=== PATIENT | female | born 1960 | race Caucasian/White ===

== ENCOUNTER 2020-04-13 15:56 | Outpatient (CLI) | payer OTHER, BC, SELFPAY | END 2020-04-13 15:57 | disposition home or self-care (01) | LOC: CHSLAB 16:03 | PROVIDERS: Visit Provider Specialist | DX: C44.41 Basal cell carcinoma of skin of scalp and neck (principal) | CPT/HCPCS: 88305 ==

== ENCOUNTER 2021-05-26 11:34 | Outpatient (CLI) | payer OTHER, SELFPAY ==
[2021-05-26 11:52] LABS: Basophils Absolute Auto 0.02 K/mm3 (0.00-0.10); Basophils Percent Auto 0.3 % (0.0-1.0); Eosinophils Absolute Auto 0.05 K/mm3 (0.02-0.50); Eosinophils Percent Auto 0.8 % (1.0-6.0); Hematocrit 41.3 % (35.0-49.0); Immature Granulocyte Absolute 0.02 K/mm3 (0.00-0.00); Immature Granulocyte Percent A 0.3 % (0.0-0.0); Lymphocytes Absolute Auto 1.67 K/mm3 (1.10-4.50); Lymphocytes Percent Auto 27.9 % (18.0-42.0); Mean Corpuscular HGB Conc 33.9 g/dL (32.0-36.0); Mean Corpuscular Hemoglobin 32.3 pg (27.0-31.0); Mean Corpuscular Volume 95.2 fL (78.0-102.0); Mean Platelet Volume 9.8 fl (9.2-11.8); Monocytes Absolute Auto 0.29 K/mm3 (0.10-0.90); Monocytes Percent Auto 4.8 % (2.0-11.0); Neutrophils Absolute Auto 3.9 K/mm3 (1.7-7.2); Neutrophils Percent Auto 65.9 % (50.0-70.0); Platelet Count Result 260 K/mm3 (150-420); Red Blood Count 4.34 M/mm3 (4.20-5.40)
[2021-05-26 12:16] LABS: Alanine Aminotransferase 24 U/L (14-59); Albumin Level 4.1 g/dL (3.4-5.0); Alkaline Phosphatase 49 U/L (46-116); Amylase 58 U/L (25-115); Anion Gap 11 mmol/L (8-16); Aspartate Amino Transferase 16 U/L (15-37); Bilirubin,Total 0.8 mg/dL (0.00-1.00); Blood Urea Nitrogen 13 mg/dL (7-18); Calcium 9.5 mg/dL (8.5-10.1); Carbon Dioxide 27 mmol/L (21-32); Chloride 104 mmol/L (98-108); Estimated Glomerular Filt Rate > 60; Glucose 94 mg/dL (70-99); Lipase 120 U/L (73-393); Osmolality Calculated 294 mOsm/kg (285-295); Potassium 4.4 mmol/L (3.5-5.1); Sodium 142 mmol/L (136-145); Total Protein 7.7 g/dL (6.4-8.2)
== END 2021-05-26 11:35 | disposition home or self-care (01) ==
LOC: CHSLAB 11:37
PROVIDERS: PCP Family Medicine; Visit Provider Family Medicine
DX: R10.9 Unspecified abdominal pain (principal); K58.0 Irritable bowel syndrome with diarrhea
CPT/HCPCS: 36415; 80053; 82150; 83690; 85025

== ENCOUNTER 2021-05-30 08:25 | Outpatient (CLI) | payer OTHER, SELFPAY ==
--- NOTE | ~2021-05-30 | US_ITS ---
EXAMINATION: US right upper quadrant DATE: 05/30/2021 08:46 INDICATION: Abdominal pain and diarrhea TECHNIQUE: Multiple grayscale and Doppler ultrasound images of the abdomen were obtained. COMPARISON: None available FINDINGS: The head and body of the pancreas are normal. The pancreatic tail is obscured by bowel gas. The liver is normal with normal echogenicity and echotexture. No surface nodularity. Normal hepatope wendi flow in the main portal vein. There is a 4 mm polyp or a immobile stone of the gallbladder. The g allbladder is otherwise normal with no abnormal wall thickening, pericholecystic fluid or stones. The normal common bile duct measures 4 mm. There was no sonographic Wright sign. IMPRESSION: 1. 4 mm polyp or immobile stone of the gallbladder. Reviewed, dictated and finalized at location B.
== END 2021-05-30 08:26 | disposition home or self-care (01) ==
LOC: CHSIMG 08:26
PROVIDERS: PCP Family Medicine; Visit Provider Family Medicine
DX: R10.9 Unspecified abdominal pain (principal)
CPT/HCPCS: 76705

== ENCOUNTER 2021-06-23 02:43 | Day surgery (SDC) | payer OTHER, BC, SELFPAY ==
[2021-06-14 16:04] VITALS: BMI 29.2
[2021-06-23 07:52] VITALS: BP 129/82; PULSE 87; RESP 16; TEMP 35.9; O2SAT 100; BMI 29.2
[2021-06-23] MEDS: LACTATED RINGERS 1,000 ML 150 ML IV CONT (08:01)
--- NOTE | 2021-06-23 08:21 | P.PNAN_ITS ---
Anes - Initial Pre Proc Eval Procedure: Operation Date: 06/23/21 09:00 Proposed Procedures p Colonoscopy - Arnulfo Coles DO Date/Time: 06/23/21 08:21 Surgeon: Arnulfo Coles DO Pre Op Diagnosis: diarrhea Patient Data Age: 60 Gender: F Height: 1.52 m Weight: 67.8 kg Last Vital Signs Temp 35.9 C L 06/23/21 07:52 Pulse 87 06/23/21 07:52 Resp 16 06/23/21 07:52 BP 129/82 06/23/21 07:52 Pulse Ox 100 06/23/21 07:52 Allergies Allergy/AdvReac Type Severity Reaction Status Date / Time No Known Allergies Allergy Verified 06/23/21 07:48 Home Medications Medication Instructions Recorded Confirmed Type Lactobacillus #2-Bifidobacter 1 cap PO DAILY #30 cap 05/26/21 06/23/21 Rx #1-S. therm 112.5 billion cell capsule tolterodine 4 mg capsule,extended 4 mg PO DAILY 05/26/21 06/23/21 History release 24 hr multivitamin 1 tablet PO DAILY 06/14/21 06/23/21 History peppermint oil 50 mg PO DAILY 06/14/21 06/23/21 History Patient hx anesthesia problems: none Family hx anesthesia problems: none PMFSH Past Medical History Medical History Abdominal pain Benign hypertension Hematuria Hyperlipidemia RICO (stress urinary incontinence, female) Surgical History Surgical History History of dilation and curettage 2009 History of hysterectomy 2009 History of oophorectomy 1991 History of tubal ligation 1991 Family History Family History Mother Hypertension Father Cancer Bladder tumor/CA Social History Social History Years smoked: 20 Smoking status: Former smoker Tobacco type: cigarettes Smoking end date: 11/12/11 Alcohol intake: current Drinks per week: 4 Alcohol use details: social Substance use: never Substance use type: does not use Living arrangements: with family Additional living arrangements comments: , has 2 children 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 Questions were solicited and answers provided to the satisfaction of the patient/family/POA.
--- NOTE | 2021-06-23 09:15 | WPDHPUPDATE1 ---
History and Physical Update Update Date/Time: 06/23/21 09:15 History and Physical has been reviewed, including an updated exam of the patient. There are NO changes in the patient's condition. Risks, benefits, and alternatives have been discussed and questions answered. Patient agrees to proceed with procedure.
[2021-06-23 09:53] VITALS: BP 104/54; PULSE 76; RESP 16; O2SAT 100
[2021-06-23 10:03] VITALS: BP 114/74; PULSE 71; RESP 16; O2SAT 100
[2021-06-23 10:13] VITALS: BP 128/80; PULSE 72; RESP 18; O2SAT 100
== END 2021-06-23 10:25 | disposition home or self-care (01) ==
PROVIDERS: PCP Family Medicine; Visit Provider Surgery
PROC: 0DJD8ZZ Inspection of Lower Intestinal Tract, Via Natural or Artificial Opening Endoscopic (ICD-10-PCS; CPT 45378; principal; 2021-06-23 09:00)
DX: Z12.11 Encounter for screening for malignant neoplasm of colon (principal); K64.8 Other hemorrhoids; R19.7 Diarrhea, unspecified; I10 Essential (primary) hypertension; R10.9 Unspecified abdominal pain; E78.5 Hyperlipidemia, unspecified; Z87.891 Personal history of nicotine dependence; R93.2 Abnormal findings on diagnostic imaging of liver and biliary tract; E66.9 Obesity, unspecified; Z68.29 Body mass index [BMI] 29.0-29.9, adult
CPT/HCPCS: 45380; 88305; J2704; J7120

== ENCOUNTER 2021-07-11 09:41 | Outpatient (CLI) | payer OTHER, BC, SELFPAY ==
--- NOTE | ~2021-07-11 | NM_ITS ---
EXAMINATION: NM hepatobiliary w pharm EXAM DATE: 07/11/2021 12:11 INDICATION: R10.9 - Unspecified abdominal pain TECHNIQUE: 4.5 mCi Tc-99m mebrofenin (Choletec) was administered intravenously. Scintigraphic images of the abdomen were obtained for one hour. At the 1 hour time point, 1.3 mcg sincalide (Kinevac) wa s administered by slow intravenous infusion, and imaging was continued for 30 minutes. Gallbladder ej ection fraction was calculated by the technologist. Correlation is made to right upper quadrant sonog ira 05/30/2021. FINDINGS: There is normal clearance of radiotracer from the blood pool. There is homogeneous tracer u ptake by the liver. Activity progresses to the gallbladder and bowel. The gallbladder ejection fract ion (GBEF) is 85 % (most patients with gallbladder dysfunction have GBEF < 35%, but there is overlap with the normal range of 10-90%). IMPRESSION: Gallbladder ejection fraction 85%, within normal range. Reviewed, dictated and finalized at location B.
== END 2021-07-11 09:42 | disposition home or self-care (01) ==
PROVIDERS: PCP Family Medicine; Visit Provider Surgery
DX: R10.9 Unspecified abdominal pain (principal); K58.0 Irritable bowel syndrome with diarrhea
CPT/HCPCS: 78227; A9537; J2805

== ENCOUNTER 2021-12-12 09:42 | Outpatient (CLI) | payer BC, SELFPAY ==
--- NOTE | ~2021-12-12 | XR_ITS ---
EXAMINATION: XR hip RT min 2V DATE: 12/12/2021 10:03 INDICATION: 6 months of right hip pain TECHNIQUE: Anteroposterior and frog-leg lateral views of the right hip were obtained. COMPARISON: 03/03/2011 FINDINGS: Alignment is normal. No fracture or suspected avascular necrosis. Mild right hip osteoarthritis with interval development of mild nonuniform joint space narrowing at the superolateral right hip. Mild ri ght sacroiliac osteoarthritis. Soft tissues are unremarkable. IMPRESSION: 1. Mild osteoarthritis at the right hip and sacroiliac joints. Reviewed, dictated and finalized at location A. WINTERIZER
== END 2021-12-12 09:43 | disposition home or self-care (01) ==
PROVIDERS: PCP Family Medicine; Visit Provider Nurse Practitioner Family
DX: M25.551 Pain in right hip (principal)
CPT/HCPCS: 73502

== ENCOUNTER 2021-12-22 08:51 | Outpatient (RCR) | payer BC, SELFPAY ==
--- NOTE | 2021-12-22 11:03 | PTOPEVAL ---
Thank you for referring Marianela Sapp to [facility].? The patient is scheduled to be seen for therapy? ____x/week for ___ weeks. Please review, sign, date and return this plan of care PRIETO. I agree with and certify that the following plan of care is medically necessary. Referring Physician Date Admitting Provider: Attending Provider: Seda Lo NP Referring Provider: HUAN Outpatient Evaluation Start: 12/22/21 08:58 Freq: Status: Active Protocol: Document 12/22/21 09:10 [facility] (Rec: 12/22/21 09:54 [facility] [id number]) Therapy Assessment Status Assessment Status Assessment Status Evaluation Outpatient Past Medical History Neurological History Hx Neurological Disorders No Significant History Cardiovascular History Hx Cardiac Disorders No Significant History Respiratory History Hx Sleep Apnea Yes: no longer uses CPAP Gastrointestinal History Hx Gastrointestinal Disorders No Significant History Genitourinary History Hx Urinary Tract Infection Yes Musculoskeletal History Hx Musculoskeletal Disorders No Significant History Hematological History Hx Hematological Disorders No Significant History Endocrine History Hx Endocrine Disorders No Significant History HEENT History Hx HEENT Disorders No Significant History Integumentary History Hx Excision Skin Lesion Yes: scalp Psychosocial History Hx Psychiatric Disorders No Significant History Pain History History of Any Previous or Ongoing No Significant History Instance of Pain Anesthesia History Hx Anesthesia Reactions No Significant History Evaluation Information Problem Diagnosis R hip pain Onset 12/12/21 Additional Evaluation Detail LEFS = 51% functionally declined Subjective Information patient reports she works for Query Text:As Reported By Patient/ [employer]. 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 she reports she is having pain in the R hip. she reports she has difficulty with walking, getting into car, and standing for increased time. she reports her pain will draw down to her R knee, and reports at time her R foot will go numb when she is up on it too long. she reports she has had an xray of the R hip with results of mild OA of the hip and SI joints. Prior Level of Function Comments Additional Prior Level of Function patient reports he pain has
--- NOTE | 2022-01-20 14:52 | PTOPEVAL ---
Thank you for referring Marianela Sapp to [facility].? The patient is scheduled to be seen for therapy? ____x/week for ___ weeks. Please review, sign, date and return this plan of care PRIETO. I agree with and certify that the following plan of care is medically necessary. Referring Physician Date Admitting Provider: Attending Provider: Seda Lo NP Referring Provider: HUAN Outpatient Evaluation Start: 12/22/21 08:58 Freq: Status: Active Protocol: Document 01/20/22 11:00 [facility] (Rec: 01/20/22 14:52 [facility] [id number]) Therapy Assessment Status Assessment Status Assessment Status Re-evaluation Outpatient Past Medical History Neurological History Hx Neurological Disorders No Significant History Cardiovascular History Hx Cardiac Disorders No Significant History Respiratory History Hx Sleep Apnea Yes: no longer uses CPAP Gastrointestinal History Hx Gastrointestinal Disorders No Significant History Genitourinary History Hx Urinary Tract Infection Yes Musculoskeletal History Hx Musculoskeletal Disorders No Significant History Hematological History Hx Hematological Disorders No Significant History Endocrine History Hx Endocrine Disorders No Significant History HEENT History Hx HEENT Disorders No Significant History Integumentary History Hx Excision Skin Lesion Yes: scalp Psychosocial History Hx Psychiatric Disorders No Significant History Pain History History of Any Previous or Ongoing No Significant History Instance of Pain Anesthesia History Hx Anesthesia Reactions No Significant History Evaluation Information Problem Diagnosis R hip pain Onset 12/12/21 Subjective Information patient reports she continues Query Text:As Reported By Patient/ to have weakness and pain in Family the R hip. she reports she does not like the way she walks as she continues to limp . she reports after a full day she is more sore and unable to stand on the R LE alone. she reports she has continued to be active and workout every day but sunday. patient reports she has R LE numbness down to the foot when coming off the bike from sp[in class. Pain Assessment Timing of Pain Assessment Timing of Pain Assessment Assessment Pain Scale Pain Scale Used Numeric (1 - 10) Self Report Pain Assessment Right Hip(s) Reported Pain Level 1 Greatest Pain Intensity 3 Pain Score Pain Score
== END 2022-01-26 23:59 | disposition home or self-care (01) ==
LOC: CHSPT 08:51
PROVIDERS: PCP Nurse Practitioner Family; Visit Provider Nurse Practitioner Family
DX: M25.551 Pain in right hip (principal)
CPT/HCPCS: 97012; 97014; 97110; 97140; 97161; 97530; G0283

== ENCOUNTER 2022-02-04 07:55 | Outpatient (CLI) | payer BC, SELFPAY ==
--- NOTE | ~2022-02-04 | MR_ITS ---
EXAMINATION: MR hip RT wo con DATE: 02/04/2022 09:26 INDICATION: Mid hip pain TECHNIQUE: Magnetic resonance imaging (MRI) of the right hip was performed without intravenous contr ast. Sequences included full-field axial PD-weighted FS FSE and T1-weighted FSE, coronal of the pelvi s with PD-weighted FS FSE, small field of view of the right hip with axial PD-weighted FS FSE, sagit wendi PD-weighted FS FSE and coronal PD weighted FS FSE. Additional radial T1-weighted FGR oriented ort hogonal to the acetabular rim were obtained for evaluation of the labrum. COMPARISON: None FINDINGS: Bones/labrum/cartilage: Alignment is normal. No fracture, avascular necrosis or pathologic marrow replacing process. Moderat e to severe right hip osteoarthritis with no full/near full-thickness cartilage loss with underlying edema-like increased marrow signal at the anterosuperior acetabulum and juxtaposed femoral head. Is a well-defined linear labral tear at the base of the posterior right acetabular labrum with more irreg ular degenerative tearing extending anteriorly to the anterosuperior labrum. Severe osteoarthritis at the bilateral L5-S1 facet joints. Fluid: Asymmetric likely reactive small right hip joint effusion. Visualized amount of fluid in the left hip joint space. No bursitis or other abnormal fluid collections. Soft tissues: Asymmetric mild fatty atrophy of the right gluteus medius and minimus muscles when compared to the le ft sided muscles. Tendinopathy at the bilateral gluteus medius minimus and right gluteus medius tendo ns. There is mild proximal retraction of the myotendinous junction of the anterior right gluteus medi us tendon consistent with mild partial-thickness likely articular sided tear of the tendon. The bilat eral iliopsoas and proximal hamstring tendons are normal. The uterus is not identified and has likely been surgically resected. Limited evaluation of visceral organs of the pelvis is otherwise unrema rkable. No pathologically enlarged pelvic/inguinal lymphadenopathy. IMPRESSION: 1. Moderate to severe right hip osteoarthritis which is underestimated on the prior radiographs. 2. Diffuse tear of the right acetabular labrum. 3. Likely reactive small right hip joint effusion. 4. Mild bilateral gluteus minimus tendinopathy and mild tendinopathy right gluteus medius tendon with mild likely air undersurface tear of the distal tendon. Reviewed, dictated and finalized at location A. IMPRESSION: 1. Moderate to severe right hip osteoarthritis which is underestimated on the p rior radiographs. 2. Diffuse tear of the right acetabular labrum. 3. Likely reactive small right hip joint effusion. 4. Mild bilateral gluteus minimus tendinopathy and mild tendinopathy right glut eus medius tendon with mild likely air undersurface tear of the distal tendon.
== END 2022-02-04 07:56 | disposition home or self-care (01) ==
PROVIDERS: PCP Nurse Practitioner Family; Visit Provider Nurse Practitioner Family
DX: M25.551 Pain in right hip (principal)
CPT/HCPCS: 73721

== ENCOUNTER 2022-03-17 12:35 | Outpatient (CLI) | payer BC, SELFPAY ==
--- NOTE | ~2022-03-17 | XR_ITS ---
EXAMINATION: XR lg joint inject/asp w image DATE: 03/17/2022 13:47 INDICATION: Right hip arthritis TECHNIQUE: A time-out was performed to verify the patient's name, date of , and procedure to b e performed. The procedure including the risks, benefits, and alternatives was discussed with the pat ient. Risks discussed included bleeding and infection. The patient understood the risks and agreed to proceed. The skin overlying the right hip joint was prepped and draped in usual sterile fashion. A nesthetic was administered with 1% lidocaine subcutaneously. A 22 G needle was advanced under fluoro scopic guidance into the joint. Injection of 1 mL of Omnipaque 240 confirmed intra-articular positio n of the needle. Subsequently, injectate consisting of 3 mL of a 2:1 mixture of 0.5% Marcaine: 80 mg /mL Depo-Medrol for a total dosage of 80 mg Depo-Medrol was instilled. Washout of contrast was seen c onfirming intra-articular administration. The needle was removed and the entry site was cleaned and d ressed. There were no immediate complications. Fluoroscopy exposure time was 0.1 minutes. The total number of images was 2. FINDINGS: Real-time fluoroscopy demonstrates the needle in the right hip joint. Patient's pain prior to procedure:12/22. Patient's pain following the procedure: 11/21. IMPRESSION: 1. Successful right hip joint injection of local anesthetic and steroid with decrease in the patient' s presenting pain. Reviewed, dictated and finalized at location A. IMPRESSION: 1. Successful right hip joint injection of local anesthetic and steroid with de crease in the patient's presenting pain.
== END 2022-03-17 12:36 | disposition home or self-care (01) ==
PROVIDERS: PCP Nurse Practitioner Family; Visit Provider Orthopaedic Surgery
DX: M16.11 Unilateral primary osteoarthritis, right hip (principal)
CPT/HCPCS: 20610; 77002; Q9966

== ENCOUNTER 2022-08-01 09:35 | Outpatient (CLI) | payer BC, SELFPAY ==
--- NOTE | ~2022-08-01 | XR_ITS ---
XR chest 2V 08/01/2022 10:08 Indication: Encounter for preprocedural examination. Procedure: 2 view chest Comparison: No prior studies for comparison. Findings: There is lingular atelectasis. No focal pneumonia, pulmonary edema, pleural effusion or pne umothorax. Heart size is normal. No acute osseous abnormality. Impression: 1: Lingular atelectasis. Reviewed, dictated and finalized at location A. Impression: 1: Lingular atelectasis.
[2022-08-01 10:14] LABS: Basophils Absolute Auto 0.02 K/mm3 (0.00-0.10); Basophils Percent Auto 0.4 % (0.0-1.0); Eosinophils Absolute Auto 0.13 K/mm3 (0.02-0.50); Eosinophils Percent Auto 2.5 % (1.0-6.0); Hematocrit 41.3 % (35.0-49.0); Hemoglobin 13.7 g/dL (12.0-15.0); Immature Granulocyte Absolute 0.02 K/mm3 (0.00-0.00); Immature Granulocyte Percent A 0.4 % (0.0-0.0); Lymphocytes Absolute Auto 1.77 K/mm3 (1.10-4.50); Lymphocytes Percent Auto 33.9 % (18.0-42.0); Mean Corpuscular HGB Conc 33.2 g/dL (32.0-36.0); Mean Corpuscular Hemoglobin 31.9 pg (27.0-31.0); Mean Corpuscular Volume 96.3 fL (78.0-102.0); Mean Platelet Volume 10.1 fl (9.2-11.8); Monocytes Absolute Auto 0.32 K/mm3 (0.10-0.90); Monocytes Percent Auto 6.1 % (2.0-11.0); Neutrophils Percent Auto 56.7 % (50.0-70.0); Platelet Count Result 257 K/mm3 (150-420); Red Blood Count 4.29 M/mm3 (4.20-5.40); Red Cell Distribution Width 12.2 % (11.6-14.4); White Blood Count 5.2 K/mm3 (4.8-10.8)
--- NOTE | 2022-08-01 10:14 | ECG_ITS ---
Measurements Intervals [place] Rate: 82 P: 18 NM: 121 QRS: 20 QRSD: 95 T: 68 QT: 350 QTc: 410 Interpretive Statements SINUS RHYTHM INCOMPLETE RIGHT BUNDLE BRANCH BLOCK BASELINE ARTIFACT- II, III, AVF BORDERLINE ECG NO PREVIOUS ECG AVAILABLE FOR COMPARISON Electronically Signed On 08-01-2022 12:27:22 CDT by Larry Serra D.O.
[2022-08-01 10:41] LABS: Alanine Aminotransferase 33 U/L (14-59); Albumin Level 3.9 g/dL (3.4-5.0); Alkaline Phosphatase 59 U/L (46-116); Anion Gap 3 mmol/L (8-16); Aspartate Amino Transferase 22 U/L (15-37); Bilirubin,Total 0.9 mg/dL (0.00-1.00); Blood Urea Nitrogen 11 mg/dL (7-18); Calcium 9.1 mg/dL (8.5-10.1); Carbon Dioxide 30 mmol/L (21-32); Chloride 104 mmol/L (98-108); Cholesterol 307 mg/dL (0-200); Estimated Glomerular Filt Rate > 60; Glucose 94 mg/dL (70-99); HDL Direct 61 mg/dL (40-60); LDL Cholesterol Calculated 218 mg/dL (<130); Osmolality Calculated 283 mOsm/kg (285-295); Potassium 4.1 mmol/L (3.5-5.1); Sodium 137 mmol/L (136-145); Total Protein 7.3 g/dL (6.4-8.2); Triglycerides 142 mg/dL (0-150)
[2022-08-01 12:13] LABS: Add Urine Microscopic? NO; Appearance Urine Clear (Clear); Bilirubin Urine Negative (Negative); Blood Urine Negative (Negative); Color Urine Light Yellow (Yellow); Glucose Urine UA Negative (Negative); Ketones Urine Negative (Negative); Leukocyte Esterase Ur Negative LEU/UL (Negative); Nitrate Urine Negative (Negative); Protein Urine Negative (Negative); Specific Grav Ur <= 1.005 (1.010-1.020); Urobilinogen Urine 0.2 mg/dL (0.2-1.0)
== END 2022-08-01 09:36 | disposition home or self-care (01) ==
LOC: CHSLAB 09:37
PROVIDERS: PCP Nurse Practitioner Family; Visit Provider Nurse Practitioner Family
DX: Z01.818 Encounter for other preprocedural examination (principal)
CPT/HCPCS: 36415; 71046; 80053; 80061; 81003; 85025; 93005

== ENCOUNTER 2022-08-09 09:54 | Outpatient (CLI) | payer BC, SELFPAY ==
[2022-08-09 11:54] LABS: Partial Thromboplastin Time 26.8 SECONDS (22.3-36.8)
[2022-08-09 12:07] LABS: Urine Cotinine NEGATIVE
[2022-08-09 12:11] LABS: Hemoglobin A1C 5.1 % (<5.7)
== END 2022-08-09 09:55 | disposition home or self-care (01) ==
LOC: ANHSURGERY 10:01
PROVIDERS: PCP Nurse Practitioner Family; Visit Provider Orthopaedic Surgery
DX: M16.11 Unilateral primary osteoarthritis, right hip (principal); Z01.818 Encounter for other preprocedural examination
CPT/HCPCS: 80307; 83036; 85610; 85730; 87081

== ENCOUNTER 2022-08-23 00:50 | Day surgery (SDC) | payer BC, SELFPAY ==
[2022-08-09 10:16] VITALS: BP 144/97; PULSE 96; RESP 16; TEMP 36.9; O2SAT 100; BMI 33.2
--- NOTE | 2022-08-09 10:46 | PC.NURSE ---
Report to the Outpatient Waiting Room, entrance under the green pavilion located off [facility], at time __6:00AM on date ___08/23/22____. OR Time: ___7:30AM . Time changes happen often and if your time is changed the preop area will call you the afternoon before. - You and your visitor will be asked to self-screen and do not enter if you have any COVID symptoms. - Only one visitor and NO children visitors are allowed at this time. - The patient visitor is requested to leave or wait in car when not with patient due to restrictions. - A mask is required within the hospital. Patients may have clear liquids (water, carbonated beverages, clear teas, apple juice) until 3 hours prior to surgery with a maximum of 20 ounces. - No food from midnight until time of surgery Take the following medications with a SIP of water the morning of surgery: ___NONE Medications to discontinue per physician ____HOLD DICLOFENAC FOR 7 DAYS PRE-OP Date to take last dose____08/16/22 Please no make-up, nail french, hairspray, perfume, deodorant, or body powder the day of surgery. No jewelry (including any body piercings) or valuables the day of surgery, leave them at home. Please take a shower or bath the night before, or the morning of, surgery with an antibacterial soap. Wear comfortable, loose fitting clothing. Children are encouraged to wear pajamas. - Jewelry must be removed prior to entering the operating room. Rings and piercings that are not removed may be cut off. - The hospital will not accept responsibility for valuables. - Please leave all valuables, including medications, at home the day of surgery. If you are going home after surgery, a licensed truck driver supervisor must drive you home. - NO public transportation without another adult. - We recommend that an adult stay with you for 24 hours following discharge. - We also recommend that you do not drive, make important decision, drink alcoholic beverages, or take any drugs that were not prescribed by your health care provider for at least 24 hours after your discharge time. Follow any additional instructions given to you from your surgeon. If you or anyone in your household have experienced Covid symptoms in the past week, please notify your surgeon or the nurse liaison at the phone number below for possible testing. Telephone instructions given to ___PATIENT and asked if any additional questions and then verbalized understanding. Patient advised to call surgeon office or pre surgery nurse liaison [phone] if any additional questions.
[2022-08-23] VITALS (20 sets, daily range): BP systolic 103–151; BP diastolic 53–97; PULSE 77–96; RESP 10–18; TEMP 36.4–37.2; O2SAT 96–100; BMI 33.0
--- NOTE | ~2022-08-23 | XR_ITS ---
EXAMINATION: XR hip RT min 2V DATE: 08/23/2022 10:40 INDICATION: Total right hip arthroplasty. Postop. TECHNIQUE: 2 views of right hip were obtained. COMPARISON: Pelvis and right hip radiograph 04/27/2022 FINDINGS: There is a total right hip arthroplasty in near-anatomic alignment. No fracture. There is g as in the soft tissues, consistent with recent surgery. IMPRESSION: 1. Total right hip arthroplasty in near-anatomic alignment. Reviewed, dictated and finalized at location A.
[2022-08-23] MEDS: ACETAMINOPHEN 500 MG TABLET 1000 MG PO (06:38)
[2022-08-23] MEDS: LACTATED RINGERS 1,000 ML 30 ML IV CONT ×2 (06:45→10:28)
[2022-08-23] MEDS: TRANEXAMIC ACID 1,000MG/ISO100 1,000 MG/100 ML BAG 200 MG IVPB (06:45)
--- NOTE | 2022-08-23 06:53 | WPDANESEPPF ---
Anes - Initial Pre Proc Eval Procedure: Operation Date: 08/23/22 07:30 Proposed Procedures p Right Total Hip Arthroplasty - Jim Lee MD Date/Time: 08/23/22 06:53 Surgeon: Jim Lee MD Pre Op Diagnosis: Rt Hip DJD Patient Data Age: 61 Gender: F Height: 1.51 m Weight: 75.6 kg Last Vital Signs Temp 36.7 C 08/23/22 05:55 Pulse 89 08/23/22 05:55 Resp 14 08/23/22 05:55 BP 151/97 H 08/23/22 05:55 Pulse Ox 99 08/23/22 05:55 O2 Del Method Room Air 08/23/22 05:55 Allergies Allergy/AdvReac Type Severity Reaction Status Date / Time No Known Allergies Allergy Verified 08/23/22 06:05 Home Medications Medication Instructions Recorded Confirmed Type tolterodine 4 mg capsule,extended 4 mg PO DAILY 04/05/22 08/09/22 History release 24 hr cyclobenzaprine 10 mg tablet See Rx Instructions .Route 07/04/22 08/09/22 Rx .COMPLEX #30 tabs diclofenac sodium 50 mg See Rx Instructions .Route 07/04/22 08/23/22 Rx tablet,delayed release .COMPLEX #60 tabs chlorhexidine gluconate 4 % 1 applic topical ONCE #237 mL 08/16/22 Rx topical liquid (Hibiclens) Patient hx anesthesia problems: none Family hx anesthesia problems: none Results Review: All pre-operative results and documents have been reviewed as part of the pre-operative evaluation. [facility] Past Medical History Medical History Abdominal pain Benign hypertension Hematuria Hyperlipidemia RICO (stress urinary incontinence, female) Surgical History Surgical History History of colonoscopy 2020, Dr. Crane History of dilation and curettage 2009 History of hysterectomy Approx 2008, Dr. Lizarraga History of oophorectomy 1991 History of skin surgery Skin cancer removed-head, 2019, Dr. Sameera Coleman History of tubal ligation Tubal ligation/ovarian cyst removed, approx 1993, Dr. Lizarraga Family History Family History Mother Hypertension Father Cancer Bladder tumor/CA Unknown Cancer Lung Other Family history of arthritis Family history of high cholesterol Social History Social History Smoking packs per day: 0.9 Smoking cigarettes per day: 18.0 Years smoked: 10 Smoking pack-years: 9.00 Smoking status: Former smoker Tobacco type: cigarettes Smoking end date: 11/12/09 Alcohol intake: current Drinks per week: 3 Alcohol use details: social Substance use: unknown Living arrangements: with family Additional living arrangements comments: , has 2 children Gender identity (if verbalized by the patient): Female Spiritual care concerns: No Anes - Eval Final PreProcedure Day of Procedure 08/23/22 06:53 Patient weight: obese Heart: regular rate and rhythm Lungs: clear to auscultation Airway: Mallampati scale class II Neurological: alert and oriented Last oral intake: >/= 8 hours ASA classification: II Emergent: no Anesthetic plan: proceed Anesthesia type and monitoring: general ETT and standard monitoring Results Review: All pre-operative results and documents have been reviewed as part of the pre-operative evaluation. Informed Consent: The patient's anesthetic plan and its attendant risks and benefits were discussed with the patient/family/POA. Questions were solicited and answers provided to the satisfaction of the patient/family/POA.
--- NOTE | 2022-08-23 07:17 | WPDHPUPDATE1 ---
History and Physical Update Update Date/Time: 08/23/22 07:17 History and Physical has been reviewed, including an updated exam of the patient. There are NO changes in the patient's condition. Risks, benefits, and alternatives have been discussed and questions answered. Patient agrees to proceed with procedure.
[2022-08-23] MEDS: ceFAZolin 2 GM/D5W 50 ML 2 GM/50 ML BAG IVPB ×3 (07:30→23:23)
[2022-08-23] MEDS: TRANEXAMIC ACID 1,000 MG/10 ML AMPUL 1000 MG IV PUSH (09:32)
--- NOTE | 2022-08-23 10:29 | W.PM.PROC2 ---
Procedure Note - Detailed Date of Procedure 08/23/22 Pre-op Diagnosis Rt Hip DJD Post-op Diagnosis Same Procedure Performed R RUY Surgeon Jim Lee MD Anesthesia General Description of Procedure THE PATIENT WAS TAKEN TO THE OPERATING ROOM IN STABLE CONDITION AND WAS PLACED IN THE LATERAL DECUBITUS AND THE RIGHT LOWER EXTREMITY WAS PREPPED AND DRAPED IN THE STERILE FASHION. INCISION WAS MADE IN THE POSTERIOR LATERAL SIDE OF THE HIP, DOWN TO THE FASCIA LAYER. THE FASCIA WAS INCISED. THE HIP WAS EXPOSED. THE SHORT EXTERNAL ROTATORS WERE EXPOSED. THE SCIATIC NERVE WAS IDENTIFIED. INCISION WAS MADE THROUGH THE SHORT EXTERNAL ROTATORS AND THE CAPSULE OF THE HIP JOINT. THE HIP WAS DISLOCATED. AN OSTEOTOMY WAS MADE TO THE FEMORAL NECK ABOUT 1 CM PROXIMAL TO THE LESSER TROCHANTER. THE ACETABULUM WAS EXPOSED. THERE WAS SEVERE DJD SEEN. BEGINNING WITH A 44 REAMER THE ACETABULUM WAS REAMED TO 49 MM. A 49 MM TRIAL WAS PLACED IN 35 DEG OF ABDUCTION AND ANTEVERSION WAS IN ALIGNMENT WITH THE TRANS ACETABULAR LIGAMENT. THE FIT WAS EXCELLENT. THE TRIAL WAS REMOVED. A 50 MM BIOMET G7 COMPONENT WAS THEN TAPPED IN TO PLACE IN 35 DEG OF ABDUCTION AND ANTEVERSION IN ALIGNMENT WITH THE TRANSVERSE ACETABULAR LIGAMENT. THE FIT WAS EXCELLENT. 2 SCREWS WERE PLACED AND HAD EXCELLENT BITES. THE ACETABULAR LINER WAS PLACED AND CHECKED FOR STABILITY. NEXT THE FEMUR WAS PREPARED WITH INITIAL CANAL FINDER THEN SEQUENTIAL BROACHING WITH A TAPERLOC HIP SYSTEM, UNTIL A 9 BROACH FIT WELL IN 15 OF ANTEVERSION. A +3 HIGH OFFSET NECK WITH 36 MM HEAD TRIAL WAS PLACED. THE SHUCK TEST WAS EXCELLENT AND THE STABILITY IN FLEXION AND ROTATION WAS EXCELLENT. LEG LENGTHS WERE GROSSLY EQUAL. TRIALS WERE REMOVED. A BIOMET TAPERLOC 9 STEM WAS PLACED WITH A HIGH OFFSET NECK. THE FIT WAS EXCELLENT IN 15 DEG OF ANTEVERSION. A +3 CERAMIC 36 MM FEMORAL HEAD WAS PLACED. THE HIP WAS TRIALED AND THE STABILITY WAS EXCELLENT WERE THE LEG LENGTHS AND THE SHUCK TEST. THE WOUND WAS IRRIGATED WITH STERILE BETADINE AND WATER FOR 3 MIN. THEN WASHED AGAIN. THE SCIATIC NERVE WAS IDENTIFIED AGAIN. THE CAPSULE AND THE EXTERNAL ROTATORS WERE APPROXIMATED WITH NUMBER 1 VICRYL. THE FASCIA WITH No 2 QUIL AND THE SUB CUTANEOUS LAYER WITH 2-0 ABSORBABLE SUTURE AND A RUNNING 3-0 SUBCUTICULAR STITCH FOR THE SKIN. DERMABOND WAS PLACED AND STERILE DRESSING WAS APPLIED. PATIENT WAS PLACED BACK ON TO THE SUPINE POSITION AND WAS EXTUBATED. Estimated Blood Loss 700 Complications No immediate complications Condition Stable Disposition PACU
--- NOTE | 2022-08-23 11:06 | SUR.PHASEI ---
Simple mask removed at 1105.
--- NOTE | 2022-08-23 11:31 | SUR.PHASEI ---
Patient has met criteria to go to the floor but no beds are available at this time. RN will give patient water in recovery.
--- NOTE | 2022-08-23 12:40 | SUR.PHASEI ---
Resuming care for patient at 1230 due to unavailable inpatient beds. Patient stable and resting comfortably. Denies desire to order food at this time. Therapy notified to see patient.
--- NOTE | 2022-08-23 13:00 | ADMGEN ---
This patient, Marianela Sapp, was admitted to Medical Room 240-. Patient/family oriented to hospital policies and general routines including ID bracelet, bed and alarms, visiting hours, pain management, procedures, bathroom and other care routines, personal items, smoking policy, room service/diet, and visiting hours. Information on how to activate the Rapid Response Team has been discussed. Patient/Family are encouraged to report perceived risks to care and to ask questions if they do not understand what they are told or what they should do.
[2022-08-23 15:27] LABS: Hematocrit 34.5 % (37.0-47.0); Hemoglobin 11.7 g/dL (12.0-15.0)
[2022-08-23] MEDS: DEXTROSE 5%/0.45% SOD CHL 1,000 ML 80 ML IV CONT (15:45)
[2022-08-23] MEDS: SENNA/DOCUSATE SODIUM TABLET 2 TAB PO (16:09)
[2022-08-23] MEDS: KETOROLAC 15 MG/ML VIAL (*BKC) IV PUSH ×2 (16:09→23:23)
[2022-08-23] MEDS: HYDROcodone/acetaminophen (*CRX) 7.5-325 MG TABLET 1 TAB PO (20:36)
[2022-08-23] MEDS: TOLTERODINE TARTRATE LA 4 MG CAP.ER.24H PO (20:36)
[2022-08-23] MEDS: ASPIRIN 325 MG ENTERIC TABLET PO (20:37)
[2022-08-23] MEDS: FAMOTIDINE 20 MG TABLET PO (20:37)
[2022-08-24 03:15] VITALS: BP 104/57; PULSE 96; RESP 18; TEMP 36.6; O2SAT 99
[2022-08-24] MEDS: KETOROLAC 15 MG/ML VIAL (*BKC) IV PUSH ×2 (05:31→11:27)
[2022-08-24 06:05] LABS: Basophils Percent Auto 0.1 % (0.2-1.2); Hematocrit 30.5 % (37.0-47.0); Hemoglobin 10.2 g/dL (12.0-15.0); Immature Granulocyte Absolute 0.08 K/mm3 (0.00-0.031); Immature Granulocyte Percent A 0.6 % (0-0.5); Lymphocytes Absolute Auto 2.21 K/mm3 (0.9-3.2); Lymphocytes Percent Auto 16.5 % (18.3-44.2); Mean Corpuscular HGB Conc 33.4 g/dl (32-36); Mean Corpuscular Volume 95.6 fl (80-100); Mean Platelet Volume 10.4 fl (7.4-10.4); Monocytes Absolute Auto 1.1 K/mm3 (0.1-0.6); Monocytes Percent Auto 8.3 % (2.6-8.5); Neutrophils Percent Auto 74.5 % (45.5-73.1); Platelet Count Result 219 k/mm3 (150-375); Red Blood Count 3.19 M/mm3 (4.2-5.4); White Blood Count 13.4 K/mm3 (4.5-10.0)
[2022-08-24 06:23] LABS: Anion Gap 8 mmol/L (8-16); Blood Urea Nitrogen 12 mg/dL (7-17); Calcium 8.6 mg/dL (8.4-10.2); Carbon Dioxide 25 mmol/L (22-30); Chloride 103 mmol/L (98-107); Estimated Glomerular Filt Rate > 60; Glucose 115 mg/dL (65-110); Potassium 3.8 mmol/L (3.4-5.0); Sodium 136 mmol/L (137-145)
--- NOTE | 2022-08-24 08:06 | WPDANESPN ---
Anes - Prog Note Post-Op Date/Time: 08/24/22 08:06 Vital Signs: Last Vital Signs Temp 36.6 C 08/24/22 03:15 Pulse 96 08/24/22 03:15 Resp 18 08/24/22 03:15 BP 104/57 L 08/24/22 03:15 Pulse Ox 99 08/24/22 03:15 O2 Del Method Room Air 08/23/22 20:00 O2 Flow Rate 2 08/23/22 11:55 Pain Score (VAS): 0 I/O: Intake & Output 08/23/22 08/24/22 08/24/22 23:59 07:59 15:59 Intake Total 500 200 Balance 500 200 Laboratory Tests 08/24/22 04:59 08/24/22 04:59 08/23/22 08/24/22 08/24/22 15:20 04:59 04:59 WBC 13.4 H RBC 3.19 L Hgb 11.7 L 10.2 L Hct 34.5 L 30.5 L MCV 95.6 MCH 32.0 MCHC 33.4 RDW 12.0 Plt Count 219 MPV 10.4 Immature Gran % (Auto) 0.6 H Neut % (Auto) 74.5 H Lymph % (Auto) 16.5 L [place] % (Auto) 8.3 Eos % (Auto) 0.0 Baso % (Auto) 0.1 L Lymph # (Auto) 2.21 [place] # (Auto) 1.1 H Eos # (Auto) 0.0 Baso # (Auto) 0.0 Abs Immat Gran (auto) 0.08 H Absolute Neuts (auto) 10.0 H Absolute Nucleated RBC 0.0 Nucleated RBC % 0.0 Sodium 136 L Potassium 3.8 Chloride 103 Carbon Dioxide 25 Anion Gap 8 BUN 12 Creatinine 0.70 Estim Creat Clear Calc Not Reportable Estimated GFR > 60 Glucose 115 H Calcium 8.6 Patient Feedback: Patient satisfied with anesthetic care.
[2022-08-24] MEDS: ceFAZolin 2 GM/D5W 50 ML 2 GM/50 ML BAG IVPB (08:22)
[2022-08-24] MEDS: ASPIRIN 325 MG ENTERIC TABLET PO (08:23)
[2022-08-24] MEDS: FAMOTIDINE 20 MG TABLET PO (08:23)
[2022-08-24] MEDS: SENNA/DOCUSATE SODIUM TABLET 2 TAB PO (08:23)
[2022-08-24] MEDS: polyethylene glycoL 3350 17 GM POWD.PACK PO (08:23)
--- NOTE | 2022-08-24 09:52 | PM.PNORT ---
Progress Note: A&P Assessment and Plan (1) S/P total hip arthroplasty: Qualifiers: Laterality: right Qualified Code(s): Z96.641 - Presence of right artificial hip joint Code(s): Z96.649 - Presence of unspecified artificial hip joint Status: Acute Assessment and Plan: POD #1 : Right RUY Continue PT/OT. WBAT. Walker. HIGH FALL RISK. Continue pain control. Ice Hip. Protect skin. DVT prophylaxis with Aspirin. SCDs. Incentive Spirometry Use reviewed. Monitor Dressing. Change prior to discharge. Bowel Regimen. Dispo: Home with Home Health pending progress with PT/OT, likely today. Subjective Subjective Date/Time Seen: 08/24/22 09:52 Post Op day: 1 Principal diagnosis: Right Hip DJD Interval history: POD #1: Right RUY Patient doing very well. Working with PT at time of exam. Standby assist with the walker. Pain well controlled however increased from yesterday. No new concerns. Hopeful for discharge home today. Review of Systems Review of Systems: All systems reviewed & are unremarkable except as noted in HPI and below Constitutional: Constitutional: Denies chills, Denies fever(s), Denies headache(s), Denies lethargy and Reports weakness ENT: Denies headache(s) Cardiovascular: Cardiovascular: Denies chest pain, Denies diaphoresis, Denies lightheadedness, Denies palpitations, Denies dyspnea and Denies dyspnea on exertion Respiratory: Respiratory: Denies cough, Denies dyspnea and Denies dyspnea on exertion Gastrointestinal: Gastrointestinal: Denies constipation, Denies diarrhea, Denies nausea and Denies vomiting Genitourinary: Genitourinary: Reports urinary frequency, Denies dysuria and Denies urinary hesitancy Musculoskeletal: Musculoskeletal: Reports joint swelling (Right Hip ) and Reports limited range of motion (Right Hip due to recent surgery ) Neurologic: Denies headache(s) and Reports weakness Endocrine: Endocrine: Denies palpitations Exam Const: General: comfortable and no acute distress Resp: Effort & Inspection: normal respiratory effort Cardio: Rate: regular rate Rhythm: regular rhythm GI: Inspection: non-distended Skin: General skin exam: normal color Other: Incision right hip c/d/i. Surrounding tissue without redness/warmth. Mild swelling consistent with recent surgery. No drainage. Neuro: Cognition (Neuro): normal cognition Speech: normal speech Extrem: Right lower extremity: normal to inspection, normal capillary refill, hip/thigh Details: tenderness Location: of the hip (Thigh soft ) Location: laterally and anteriorly, swelling Location: at the hip, abnormal ROM (limited consistent with recent surgery ) Details: pain with active ROM during and pain with passive ROM during and other (Incision c/d/i. ); no deformity and no unusual warmth, knee Details: normal to inspection; no tenderness and no swelling, lower leg (Negative Ez's Sign ) Details: normal to inspection and no edema; no tenderness, ankle (+ankle dorsiflexion/plantarflexion) Details: normal to inspection and no edema; no tenderness, no swelling and no ecchymosis and foot Details: normal capillary refill, toes with normal ROM, vascular exam Details: dorsalis pedis pulse present and motor-sensory exam Details: light-touch normal; no tenderness Objective Data Vital Signs Vital Signs: Vital Signs - 24 hr 08/23/22 10:28 08/23/22 10:40 08/23/22 10:45 Temperature 36.4 C L Pulse Rate 77 88 88 Respiratory Rate 15 12 12 Blood Pressure 104/53 L 118/71 Pulse Oximetry 96 100 100 Oxygen Delivery Simple Face Mask Simple Face Mask Simple Face Mask Oxygen Flow Rate 8 8 8 08/23/22 10:55 08/23/22 11:10 08/23/22 11:20 Temperature Pulse Rate 79 86 78 Respiratory Rate 12 12 10 L Blood Pressure 126/68 135/69 125/80 Pulse Oximetry 100 97 99 Oxygen Delivery Simple Face Mask Room Air Nasal Cannula Oxygen Flow Rate 8 2 08/23/22 11:25 08/23/22 11:55 08/23/22 12:24 Temperature Puls
[2022-08-24 10:00] VITALS: BP 127/57; PULSE 100; RESP 16; TEMP 37; O2SAT 98
--- NOTE | 2022-08-24 13:03 | PM.DS ---
DS: Admitting Diagnosis Discharge Date 08/24/22 Admitting Diagnosis Right RUY DS: Discharge Diagnosis Discharge Diagnosis (1) S/P total hip arthroplasty: Qualifiers: Laterality: right Qualified Code(s): Z96.641 - Presence of right artificial hip joint Code(s): Z96.649 - Presence of unspecified artificial hip joint Status: Acute Assessment and Plan: POD #1 : Right RUY Continue PT/OT. WBAT. Walker. HIGH FALL RISK. Continue pain control. Ice Hip. Protect skin. DVT prophylaxis with Aspirin. SCDs. Incentive Spirometry Use reviewed. Monitor Dressing. Change prior to discharge. Bowel Regimen. Dispo: Home with Home Health pending progress with PT/OT, likely today. DS: Summary Hospital Course Reason for hospitalization: Right Hip DJD Hospital Course: 61 year old female admitted s/p right TKA for postoperative medical management, paint control and mobilization with PT/OT. Patient progressed well with PT/OT. Pain and vitals stable throughout. They have been cleared to be discharged home with home health at this time. Follow up planned for 3 weeks in the outpatient orthopedic clinic with Dr. Lee. Status at Discharge Functional status at discharge: uses cane/walker Overall status at discharge: patient is progressing back to baseline Time Spent with Patient Time attestation: Total time spent providing and/or coordinating discharge services: Exam Const: General: comfortable and no acute distress Resp: Effort & Inspection: normal respiratory effort Cardio: Rate: regular rate Rhythm: regular rhythm GI: Inspection: non-distended Skin: General skin exam: normal color Other: Incision right hip c/d/i. Surrounding tissue without redness/warmth. Mild swelling consistent with recent surgery. No drainage. Neuro: Cognition (Neuro): normal cognition Speech: normal speech Extrem: Right lower extremity: normal to inspection, normal capillary refill, hip/thigh Details: tenderness Location: of the hip (Thigh soft ) Location: laterally and anteriorly, swelling Location: at the hip, abnormal ROM (limited consistent with recent surgery ) Details: pain with active ROM during and pain with passive ROM during and other (Incision c/d/i. ); no deformity and no unusual warmth, knee Details: normal to inspection; no tenderness and no swelling, lower leg (Negative Ez's Sign ) Details: normal to inspection and no edema; no tenderness, ankle (+ankle dorsiflexion/plantarflexion) Details: normal to inspection and no edema; no tenderness, no swelling and no ecchymosis and foot Details: normal capillary refill, toes with normal ROM, vascular exam Details: dorsalis pedis pulse present and motor-sensory exam Details: light-touch normal; no tenderness DS: Data Data Completed and Pending Labs on day of discharge: Labs from last 24 hours 08/24/22 08/24/22 08/23/22 04:59 04:59 15:20 WBC 13.4 H RBC 3.19 L Hgb 10.2 L 11.7 L Hct 30.5 L 34.5 L MCV 95.6 MCH 32.0 MCHC 33.4 RDW 12.0 Plt Count 219 MPV 10.4 Immature Gran % (Auto) 0.6 H Neut % (Auto) 74.5 H Lymph % (Auto) 16.5 L [place] % (Auto) 8.3 Eos % (Auto) 0.0 Baso % (Auto) 0.1 L Lymph # (Auto) 2.21 [place] # (Auto) 1.1 H Eos # (Auto) 0.0 Baso # (Auto) 0.0 Abs Immat Gran (auto) 0.08 H Absolute Neuts (auto) 10.0 H Absolute Nucleated RBC 0.0 Nucleated RBC % 0.0 Sodium 136 L Potassium 3.8 Chloride 103 Carbon Dioxide 25 Anion Gap 8 BUN 12 Creatinine 0.70 Estim Creat Clear Calc Not Reportable Estimated GFR > 60 Glucose 115 H Calcium 8.6 Discharge Plan Discharge Attending physician on discharge: Jim Lee Discharging Clinician: Indira Galo Patient Disposition: Home Health Service Activity: may shower, no driving and follow weight bearing status Diet: as tolerated Wound Care Instructions: follow printed instructions
== END 2022-08-24 14:26 | disposition home or self-care (01) ==
LOC: ANHSURGERY 05:46 → ANH2MED 16:33
PROVIDERS: PCP Nurse Practitioner Family; Visit Provider Orthopaedic Surgery
PROC: (CPT 27130; principal; 2022-08-23 07:30)
DX: M16.11 Unilateral primary osteoarthritis, right hip (principal); I10 Essential (primary) hypertension; E78.5 Hyperlipidemia, unspecified; Z87.891 Personal history of nicotine dependence; E66.9 Obesity, unspecified; Z68.33 Body mass index [BMI] 33.0-33.9, adult
CPT/HCPCS: 27130; 36415; 73502; 80048; 85014; 85018; 85025; 86850; 86900; 86901; 97110; 97116; 97161; 97165; 97530; 97535; 99199; A9270; C1776; J0171; J0330; J0690; J1100; J1170; J1885; J2250; J2270; J2370; J2405; J2704; J2710; J2795; J3010; J7120

== ENCOUNTER 2022-09-19 14:56 | Outpatient (RCR) | payer BC, SELFPAY ==
--- NOTE | 2022-09-19 16:12 | PTOPEVAL1 ---
Assessment and note entered by Sushma Mejia, PT Evaluation Information Assessment Status Evaluation Diagnosis Right RUY Onset 08/23/22 Subjective Information Marianela Sapp reports she had a right total hip replacement on 08/23/22. She had home health PT for 6 sessions and has been performing bed and standing exercises. She started using a cane with her home health therapist last week and has not had too much difficulty. She is reporting steady improvements in her mobility and decreased pain. She is take stairs one at a time with a handrail and cane to get to her basement. She also has 2 stairs into and out of her home. She is hoping to return to working out at the gym 3 days a week. Reported Pain Level Pain Score 1: Self Report Assessment PT Clinical Summary Marianela Sapp is 4 weeks s/p right RUY. She is reporting minimal pain and is able to walk with a cane. She is limited with stairs and walking long distances. She objectively demonstrates decreased right hip AROM, decreased right hip and core strength, impaired gait, impaired balance, and decreased endurance. She will benefit from skilled PT to address these limitations. Plan of Care Interventions Electrical Stimulation,Gait Training,Hot Pack/Cold Pack,Neuro Re-education,Patient/Caregiver Educati ,Therapeutic Activities,Therapeutic Exercise PT Services Indicated Yes Treatment Frequency and 2 times a week for 8 visits Duration These treatments will address the objective and functional deficits as defined above. The patient will be advanced safely and appropriately in order for the patient to progress towards his/her prior level of function. Additional exercises will be introduced and as well as a comprehensive home exercise program upon discharge, if needed, ?to ensure carryover of functional gains achieved in the clinic. This treatment plan has been reviewed and agreement upon by the patient.
--- NOTE | 2022-10-13 13:59 | PTOPDC ---
Assessment and note entered by Akua Kim DPT Evaluation Information Assessment Status Discharge Diagnosis Right RUY Onset 08/23/22 Subjective Information Pt reports no pain in her hip. She is very active with her exercise classes. She reports that she is happy with her progress and has little to no problem with any activities but is curious about her ability to perform more dynamic activities. Reported Pain Level Pain Score 0: Self Report Assessment PT Clinical Summary Pt presents to PT with significant improvements in strength, ROM, and gait pattern since her initial evaluation. While she still demonstrates decreased hip ABD strength, she was provided with an updated HEP to continue to improve hip ABD strength and further reduce the slight trendelenburg gait she has in R stance. She was educated to continue to maintain her activity level and is to follow-up as needed regarding her POC. Plan of Care PT Services Indicated No
== END 2022-10-13 14:07 | disposition home or self-care (01) ==
LOC: CHSPT 14:56
PROVIDERS: Visit Provider Orthopaedic Surgery
DX: Z96.641 Presence of right artificial hip joint (principal)
CPT/HCPCS: 97110; 97161; 97530

== ENCOUNTER 2022-10-27 08:19 | Outpatient (CLI) | payer BC, SELFPAY ==
[2022-10-27 10:49] LABS: Alanine Aminotransferase 24 U/L (14-59); Albumin Level 3.8 g/dL (3.4-5.0); Alkaline Phosphatase 54 U/L (46-116); Anion Gap 7 mmol/L (8-16); Aspartate Amino Transferase 20 U/L (15-37); Bilirubin,Total 0.5 mg/dL (0.00-1.00); Blood Urea Nitrogen 11 mg/dL (7-18); Calcium 9.1 mg/dL (8.5-10.1); Carbon Dioxide 30 mmol/L (21-32); Chloride 103 mmol/L (98-108); Estimated Glomerular Filt Rate > 60; Glucose 86 mg/dL (70-99); Osmolality Calculated 288 mOsm/kg (285-295); Potassium 4.2 mmol/L (3.5-5.1); Sodium 140 mmol/L (136-145); Total Protein 7.2 g/dL (6.4-8.2)
== END 2022-10-27 08:20 | disposition home or self-care (01) ==
LOC: CHSLAB 08:22
PROVIDERS: PCP Nurse Practitioner Family; Visit Provider Urology
DX: N39.0 Urinary tract infection, site not specified (principal); R31.9 Hematuria, unspecified
CPT/HCPCS: 36415; 80053

== ENCOUNTER 2023-02-20 08:46 | Outpatient (CLI) | payer BC, SELFPAY ==
[2023-02-20 09:32] LABS: Cholesterol 265 mg/dL (0-200); HDL Direct 71 mg/dL (40-60); LDL Cholesterol Calculated 168 mg/dL (<130); Triglycerides 129 mg/dL (0-150)
== END 2023-02-20 08:47 | disposition home or self-care (01) ==
LOC: CHSLAB 08:48
PROVIDERS: PCP Nurse Practitioner Family; Visit Provider Nurse Practitioner Family
DX: E78.5 Hyperlipidemia, unspecified (principal)
CPT/HCPCS: 36415; 80061

== ENCOUNTER 2023-07-17 09:05 | Outpatient (CLI) | payer BC, SELFPAY | END 2023-07-17 09:06 | disposition home or self-care (01) | LOC: CHSLAB 09:22 | PROVIDERS: PCP Nurse Practitioner Family; Visit Provider Specialist | DX: L91.8 Other hypertrophic disorders of the skin (principal) | CPT/HCPCS: 88304; 88305 ==

== ENCOUNTER 2024-05-08 15:12 | Outpatient (CLI) | payer BC, SELFPAY ==
--- NOTE | ~2024-05-08 | XR_ITS ---
EXAMINATION: XR shoulder RT min 2V DATE: 05/08/2024 15:36 INDICATION: Right shoulder pain with limited range of motion TECHNIQUE: AP internally and externally rotated, AP oblique externally rotated and transscapular Y vi ews of the right shoulder were obtained. COMPARISON: None FINDINGS: Normal alignment. The acromion undersurface is curved in morphology (type II). No acute fracture. The re are few old healed anterior right rib fractures. Glenohumeral joint is normal. Mild acromioclavicu lar osteoarthritis. Soft tissues are unremarkable. IMPRESSION: Mild right acromioclavicular osteoarthritis. Reviewed, dictated and finalized at location B.
[2024-05-08 16:00] LABS: Alanine Aminotransferase 9 U/L (14-59); Albumin Level 4.1 g/dL (3.4-5.0); Alkaline Phosphatase 49 U/L (46-116); Anion Gap 14 mmol/L (4-12); Aspartate Amino Transferase 21 U/L (15-37); Bilirubin,Total 0.8 mg/dL (0.00-1.00); Blood Urea Nitrogen 21 mg/dL (7-18); Calcium 9.8 mg/dL (8.5-10.1); Carbon Dioxide 22 mmol/L (21-32); Chloride 101 mmol/L (98-108); Cholesterol 279 mg/dL (0-200); Estimated Glomerular Filt Rate > 60; Glucose 103 mg/dL (70-99); HDL Direct 68 mg/dL (40-60); LDL Cholesterol Calculated 182 mg/dL (<130); Osmolality Calculated 287 mOsm/kg (285-295); Sodium 137 mmol/L (136-145); Total Protein 7.6 g/dL (6.4-8.2); Triglycerides 145 mg/dL (0-150)
== END 2024-05-08 15:13 | disposition home or self-care (01) ==
LOC: CHSLAB 15:13
PROVIDERS: PCP Nurse Practitioner Family; Visit Provider Nurse Practitioner Family
DX: E78.5 Hyperlipidemia, unspecified (principal); I10 Essential (primary) hypertension; M25.511 Pain in right shoulder; M19.011 Primary osteoarthritis, right shoulder
CPT/HCPCS: 36415; 73030; 80053; 80061

== ENCOUNTER 2024-05-13 11:53 | Outpatient (CLI) | payer BC, SELFPAY ==
--- NOTE | ~2024-05-13 | MM_ITS ---
EXAMINATION: MM screening roxane BI w riley HISTORY: Screening mammogram TECHNIQUE: Craniocaudal and mediolateral oblique 3-D tomosynthesis images were obtained and synthetic 2-D images were generated. CAD analysis was submitted and interpreted. COMPARISON: 02/09/2012 BREAST PARENCHYMAL COMPOSITION:Not Dense. The breasts are almost entirely fatty FINDINGS: No suspicious mass, calcification, or architectural distortion are identified in either joseph ast to suggest malignancy. There has been no suspicious interval change. IMPRESSION: No mammographic evidence of malignancy. Recommend routine screening mammography in one year. BI-RADS Category 1: Negative Reviewed, dictated and finalized at location .
== END 2024-05-13 11:54 | disposition home or self-care (01) ==
LOC: CHSIMG 11:54
PROVIDERS: PCP Nurse Practitioner Family; Visit Provider Nurse Practitioner Family
DX: Z12.31 Encounter for screening mammogram for malignant neoplasm of breast (principal)
CPT/HCPCS: 77063; 77067

== ENCOUNTER 2024-05-19 08:52 | Outpatient (RCR) | payer BC, SELFPAY ==
--- NOTE | 2024-05-19 09:35 | PTOPEVAL1 ---
Assessment and note entered by Marcos Dia Evaluation Information Assessment Status Evaluation Diagnosis right shoulder pain Onset 03/12/24 Subjective Information Pt. reports that she developed right shoulder pain around the beginning of March. she has been participating in group exercise class, and had increased weight. She reports reports shortly after she developed right shoulder pain. She report she has pain reaching behind her back, pain with reaching overhead. She reports she enjoys swimming for exercise, but has been unable to swim for exercise due to pain in her shoulder. She reports that pain will wake her at night if she lays on the right shoulder. She is right hand dominant. She states that she has developed difficulty with putting on her bra. She states that her goal for therapy is to reduce her shoulder pain. Reported Pain Level Pain Score 2: Self Report Assessment PT Clinical Summary Pt. is a 63 year old female who enters the clinic with right shoulder pain due to rotator cuff syndrome. She presents with right shoulder pain, impaired shoulder strength and impaired right shoulder ROM. Continued skilled PT is indicated in order to improve these areas to allow the pt. to be independent with all IADL's and improve comfort with IADL's and return to normal exercise activities. Plan of Care Interventions Electrical Stimulation,Hot Pack/Cold Pack,Manual Therapy,Neuro Re-education,Patient/Caregiver Educati,Therapeutic Activities,Therapeutic Exercise PT Services Indicated Yes Treatment Frequency and 2x/week x 10 visits Duration These treatments will address the objective and functional deficits as defined above. The patient will be advanced safely and appropriately in order for the patient to progress towards his/her prior level of function. Additional exercises will be introduced and as well as a comprehensive home exercise program upon discharge, if needed, ?to ensure carryover of functional gains achieved in the clinic. This treatment plan has been reviewed and agreement upon by the patient.
--- NOTE | 2024-05-19 09:35 | OPREHPOC ---
Outpatient Therapy Plan of Care This is a Multidisciplinary Plan of Care that may contain components documented by all disciplines (PT, OT, and ST.) PT Problem 1 PT Problem #1 Knowledge Deficit PT Goal 1 Goal Pt. will be independent with a HEP addressing ROM protestant at the right shoulder Target Visit 2 PT Problem 2 PT Problem #2 Pain PT Goal 1 Goal Pt. will reduce pain to 2/10 at worst with overhead reaching activities. Target Visit 10 PT Problem 3 PT Problem #3 Impaired Range of Motion PT Goal 1 Goal Pt. will achieve 160 degrees pain free active right shoulder flexion Pt. will be able to reach to the upper thoracic region with right u.e. in order to fasten bra strap Target Visit 10 PT Problem 4 PT Problem #4 Impaired Strength PT Goal 1 Goal Pt. will be able to lift 5-10# object overhead with the right u.e. without pain in order to return to her normal exercise routine Target Visit 10
== END 2024-08-17 23:59 | disposition home or self-care (01) ==
LOC: CHSPT 08:52
PROVIDERS: Visit Provider Nurse Practitioner Family
DX: M25.511 Pain in right shoulder (principal)
CPT/HCPCS: 97014; 97110; 97140; 97161; G0283

== ENCOUNTER 2025-05-18 07:46 | Outpatient (CLI) | payer OTHER, SELFPAY ==
--- OUTSIDE RECORDS SUMMARY | 2025-05-18 07:50 | XMS_ITS | Clinical Summary ---
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 Name Role Phone Unavailable Primary Care Provider Unavailabl e Social History Tobacco Use Types Packs/Day Years Used Date Smoking Tobacco: Never Assessed Comments Unknown Sex and Gender Information Value Date Recorded Sex Assigned at Not on file Legal Sex Female 6:57 PM CDT Gender Identity Not on file Sexual Orientation Not on file Plan of Treatment Health Maintenance Due Date Last Done Comments Cervical Cancer Screening Pa p Smear (Age 30 to 64) Every 3 Years 1961 Colorectal Cancer Screening Colonoscopy (10 Years) 1961 Annual Physical 1964 Hepatitis C 1979 DTaP, Tdap and Td Vaccines ( 1 - Tdap) 1980 Cervical Cancer Screening Pa p with HPV Testing (Age 30 to 64) Every 5 Years 1991 Cervical Cancer Screening with HPV 1991 Mammogram Screening 2001 Pneumococcal Vaccine: 50+ Ye ars (1 of 1 - PCV) 2011 Zoster Vaccines (1 of 2) 2011 COVID-19 Vaccine (2023-2 5 season) 2024 RSV Immunization or 60+ Years (1 - 1-dose 75+ series) 2036 Meningococcal B Vaccine Aged Out No l onger eligible based on patient's age to complete this topic Meningococcal Vaccine Aged Out No favian maribell eligible based on patient's age to complete this topic RSV Immunizations Under 20 Months Aged Out No longer eligible based on patient's age to complete this topic
--- OUTSIDE RECORDS SUMMARY | 2025-05-18 07:50 | XMS_ITS | Clinical Summary ---
Author Organization [facility] Address [address] [place] [address] Care Team Providers Care Export Manager Name Role Phone Unavailable Primary Care Provider Unavailabl e Immunizations Immunization Administration Dates Next Due Covid-19, Mrna, Lnp-s, Pf, 30 Mcg/0.3 Ml Dose (P fizer) 09/16/2021 Social History Tobacco Use Types Packs/Day Years Used Date Smoking Tobacco: Never Assessed Comments Unknown Sex and Gender Information Value Date Recorded Sex Assigned at Not on file Legal Sex Female 1:22 PM CDT Gender Identity Not on file Sexual Orientation Not on file Plan of Treatment Health Maintenance Due Date Last Done Comments Hepatitis C Virus (HCV) Screening 1961 TdaP Immunization 1961 Colonoscopy 2006 Colorectal Cancer Screening 2006 Cologuard 2011 Immunochemical Fecal Occult Blood 2011 Pneumococcal Immunization (5 0+ years) (1 of 1 - PCV) 2011 Zoster Immunization (1 of 2) 2011 SARS-COV-2 Immunization ( - season) 2024 09/16/2021, 01/30/2021, 01/09/2021 Influenza Immunization (Seas on Ended) 2025 08/20/2020 Respiratory Syncytial Virus (RSV) Immunization (Adult) (1 - 1-dose 75+ series) 2036 Hepatitis B Immunization Aged Out No longer eligible based on patient's age to complete this topic Human Papillomavirus (HPV) Immunization Aged Out No longer eligible b ased on patient's age to complete this topic Meningococcal Immunization (ACWY) Aged Out No longer eligible b ased on patient's age to complete this topic Rotavirus Immunization Aged Out No lo nger eligible based on patient's age to complete this topic
--- OUTSIDE RECORDS SUMMARY | 2025-05-18 07:50 | XMS_ITS | Referral Summary ---
Author Organization [facility] Address [address] [place] [address] Care Team Providers Care Nuisance Wildlife Control Operator Name Role Phone Seda Lo NP Primary Care Provider [phone] [phone] Allergies No known active allergies Social History Tobacco Use Types Packs/Day Years Used Date Smoking Tobacco: Never Assessed Personal Safety Answer Date Recorded Getting School Help Needed Not on file 05/30 Comments Unknown Sex and Gender Information Value Date Recorded Sex Assigned at Not on file Legal Sex Female 10:36 AM CDT Gender Identity Not on file Sexual Orientation Not on file Plan of Treatment Not on file Insurance BLUE [employer] CHOICE OOS Care Teams Nuisance Wildlife Control Operator Relationship Specialty Start Date End Date Seda Lo NP [address] [place] [address] PCP - General Nurse Practitioner 05/30/24
--- OUTSIDE RECORDS SUMMARY | 2025-05-18 07:50 | XMS_ITS | Clinical Summary ---
Author Organization [facility] Address [address] [place] [address] Care Team Providers Care Wire Mesh Gate Assembler Name Role Phone Seda Lo NP Primary Care Provider [phone] [phone] Allergies No known active allergies Social History [...] Health Maintenance Due Date Last Done Comments Breast Cancer Screening-Mammogram 1961 Cervical Cancer Screening 1961 Colon Cancer Screening-Colonoscopy 1961 Depression Screening 1961 Hepatitis C Screening 1961 DTaP/Tdap/Td Vaccine (1 - Tdap) 1972 Hepatitis B Screening 1979 Regular Well Visit/Exam 18-64 1979 Zoster Vaccine (1 of 2) 2011 Covid-19 Vaccine (2023-2 5 season) 2024 09/16/2021, 01/30/2021, 01/09/2021 Influenza Vaccine (Season Ended) 2025 08/20/2020 Pneumococcal vaccine <65 Aged Out No longer eligible based on patient's age to complete this topic Insurance BLUE [employer] CHOICE OOS Care Teams Wire Mesh Gate Assembler Relationship Specialty Start Date End Date Seda Lo NP [address] [place] [address] PCP - General Nurse Practitioner 05/30/24
[2025-05-18 08:00] LABS: Hematocrit 41.3 % (35.0-49.0); Hemoglobin 13.7 g/dL (12.0-15.0); Immature Granulocyte Percent A 0.2 % (0.0-0.0); Lymphocytes Absolute Auto 2.15 K/mm3 (1.10-4.50); Mean Corpuscular HGB Conc 33.2 g/dL (32-36); Mean Corpuscular Hemoglobin 31.9 pg (27.0-31.0); Mean Corpuscular Volume 96.3 fL (78.0-102.0); Nucleated Red Blood Cells Absolute Auto 0.00 K/mm3 (0.00-0.00); Nucleated Red Blood Cells Perc 0.0 % (0-0.0); Platelet Count Result 216 K/mm3 (150-420); Red Blood Count 4.29 M/mm3 (4.20-5.40); White Blood Count 5.2 K/mm3 (4.8-10.8)
[2025-05-18 08:19] LABS: Alanine Aminotransferase 18 U/L (6-35); Albumin Level 4.3 g/dL (3.5-5.1); Alkaline Phosphatase 44 U/L (38-126); Anion Gap 3 mmol/L (4-12); Aspartate Amino Transferase 29 U/L (14-36); Bilirubin,Total 1.2 mg/dL (0.2-1.3); Blood Urea Nitrogen 11 mg/dL (7-17); Calcium 9.5 mg/dL (8.4-10.2); Carbon Dioxide 28 mmol/L (22-30); Chloride 107 mmol/L (98-107); Cholesterol 157 mg/dL (0-200); Estimated Glomerular Filt Rate > 60; Glucose 93 mg/dL (65-110); HDL Direct 58 mg/dL; Osmolality Calculated 285 mOsm/kg (285-295); Potassium 4.2 mmol/L (3.4-5.0); Sodium 138 mmol/L (137-145); Total Protein 6.9 g/dL (6.3-8.2); Triglycerides 137 mg/dL (<150)
[2025-05-18 08:35] LABS: Free T4 Free Thyroxine 1.20 ng/dL (0.78-2.19)
[2025-05-18 08:49] LABS: Thyroid Stimulating Hormone 0.587 uIU/mL (0.465-4.680)
[2025-05-20 09:03] LABS: Total Triiodothyronine (T3) 99 ng/dL (76-181)
== END 2025-05-18 07:47 | disposition home or self-care (01) ==
LOC: CHSLAB 07:48
PROVIDERS: PCP Nurse Practitioner Family; Visit Provider Nurse Practitioner Family
DX: I10 Essential (primary) hypertension (principal); Z13.6 Encounter for screening for cardiovascular disorders; E78.5 Hyperlipidemia, unspecified; E03.9 Hypothyroidism, unspecified; R79.89 Other specified abnormal findings of blood chemistry
CPT/HCPCS: 36415; 80053; 80061; 84439; 84443; 84480; 85025

== ENCOUNTER 2025-05-20 10:20 | Outpatient (CLI) | payer OTHER, SELFPAY ==
--- NOTE | ~2025-05-20 | MM_ITS ---
EXAMINATION: MM screening [facility] BI w [facility] HISTORY: Screening TECHNIQUE: Craniocaudal and mediolateral oblique 3-D tomosynthesis images were obtained and synthetic 2-D images were generated. CAD analysis was submitted and interpreted. COMPARISON: Comparison to multiple prior studies sequentially, with oldest reviewed study dated 02/08. BREAST PARENCHYMAL COMPOSITION: Not dense: There are scattered areas of fibroglandular density. FINDINGS: There is no evidence of suspicious mass, calcification, or architectural distortion to sugg est malignancy in either breast. There has been no suspicious interval change. IMPRESSION: 1. No mammographic evidence of malignancy. 2. Recommend routine screening mammography in one year. BI-RADS Category 1: Negative Reviewed, dictated and finalized at location A.
--- OUTSIDE RECORDS SUMMARY | 2025-05-20 10:31 | XMS_ITS | Clinical Summary ---
Author Organization [facility] Address [address] [place] [address] Care Team Providers Care Donor Services Team Leader Name Role Phone Seda Lo NP Primary Care Provider [phone] [phone] Allergies No known active allergies Social History [...] Insurance BLUE [employer] CHOICE OOS Care Teams Donor Services Team Leader Relationship Specialty Start Date End Date Seda Lo NP [address] [place] [address] PCP - General Nurse Practitioner 05/30/24
--- OUTSIDE RECORDS SUMMARY | 2025-05-20 10:31 | XMS_ITS | Clinical Summary ---
Author Organization [facility] Address [address] [place] [address] Care Team Providers Care Heel Painter Name Role Phone Unavailable Primary Care Provider [...]
--- OUTSIDE RECORDS SUMMARY | 2025-05-20 10:31 | XMS_ITS | Referral Summary ---
Author Organization [facility] Address [address] [place] [address] Care Team Providers Care Mail Officer Name Role Phone Seda Lo NP Primary Care Provider [phone] [phone] Allergies No known active allergies Social History [...] Insurance BLUE [employer] CHOICE OOS Care Teams Mail Officer Relationship Specialty Start Date End Date Seda Lo NP [address] [place] [address] PCP - General Nurse Practitioner 05/30/24
== END 2025-05-20 10:21 | disposition home or self-care (01) ==
LOC: CHSIMG 10:22
PROVIDERS: PCP Nurse Practitioner Family; Visit Provider Nurse Practitioner Family
DX: Z12.31 Encounter for screening mammogram for malignant neoplasm of breast (principal)
CPT/HCPCS: 77063; 77067

== ENCOUNTER 2025-06-23 08:16 | Outpatient (CLI) | payer OTHER, SELFPAY ==
--- NOTE | ~2025-06-23 | XR_ITS ---
XR knee LT min 4V 06/23/2025 08:32 Indication: Chronic left knee pain Procedure: 4 views left knee Comparison: No prior studies for comparison. Findings: No fracture, subluxation or dislocation. No significant joint effusion. No foreign bodies. Impression: 1: No acute bone or joint abnormality. Reviewed, dictated and finalized at location A. Impression: 1: No acute bone or joint abnormality.
--- OUTSIDE RECORDS SUMMARY | 2025-06-23 08:25 | XMS_ITS | Clinical Summary ---
Author Organization [facility] Address [address] [place] [address] Care Team Providers Care Surety Bond Agent Name Role Phone Seda Lo NP Primary Care Provider [phone] [phone] Allergies No known active allergies Social History [...] season) 2024 09/16/2021, 01/30/2021, 01/09/2021 Influenza Vaccine (#1) 2025 08/20/2020 Pneumococcal vaccine <65 Aged Out No longer eligible based on patient's age to complete this topic Insurance BLUE [employer] CHOICE OOS Care Teams Surety Bond Agent Relationship Specialty Start Date End Date Seda Lo NP [address] [place] [address] PCP - General Nurse Practitioner 05/30/24
--- OUTSIDE RECORDS SUMMARY | 2025-06-23 08:25 | XMS_ITS | Clinical Summary ---
Author Organization [facility] Address [address] [place] [address] Care Team Providers Care Cabin Crew Name Role Phone Unavailable Primary Care Provider [...] Virus (HCV) Screening 1961 TdaP Immunization 1961 Pap Smear 1982 Cervical Cancer Screening (CCS) 1991 HPV/Cotest 1991 Cologuard 2006 Colonoscopy 2006 Colorectal Cancer Screening 2006 Immunochemical Fecal Occult Blood 2006 Pneumococcal Immunization (5 0+ years) (1 of 1 - PCV) 2011 Zoster Immunization (1 of 2) 2011 SARS-COV-2 Immunization ( - season) 2024 09/16/2021, 01/30/2021, 01/09/2021 Influenza Immunization (#1) 2025 08/20/2020 Respiratory Syncytial Virus (RSV) Immunization [...]
== END 2025-06-23 08:17 | disposition home or self-care (01) ==
LOC: CHSIMG 08:18
PROVIDERS: PCP Nurse Practitioner Family; Visit Provider Orthopaedic Surgery
DX: M25.562 Pain in left knee (principal)
CPT/HCPCS: 73564